=== PATIENT | female | born 1985 | race African-American/Black ===

== ENCOUNTER 2016-12-23 18:18 | Emergency (ER) | payer MEDICAID ==
[~2016-12-23] VITALS: Ht 162.6 cm; Wt 60.0 kg
[2016-12-23 20:26] LABS: BASOPHILS % 0.7 % (0.0-2.0); EOSINOPHILS % 4.4 % (0.0-5.0); HEMATOCRIT. 33.1 % (36.0-48.0); HEMOGLOBIN. 10.2 g/dL (12.0-16.0); LYMPHOCYTES % 18.9 % (20.0-50.0); MEAN CORPUSCULAR HEMOGLOBIN 22.6 pg (28.0-32.0); MEAN CORPUSCULAR VOLUME 73.5 fL (81.0-99.0); MONOCYTES % 4.8 % (2.0-8.0); NEUTROPHILS % 71.2 % (40.0-76.0); PLATELET 242 x1000/uL (130-400); RED BLOOD CELL COUNT 4.51 mill/uL (4.2-5.4); RED CELL DISTRIBUTION WIDTH 18.8 % (11.6-14.6)
[2016-12-23 20:33] LABS: INR 1.6; PROTHROMBIN TIME 16.5 sec
[2016-12-23 20:40] LABS: CARBON DIOXIDE 28 mEq/L (21-32); CHLORIDE 102 mEq/L (98-107)
[2016-12-23 21:11] LABS: CLARITY URINE CLOUDY (CLEAR); COLOR URINE YELLOW (YELLOW); GLUCOSE URINE NEGATIVE (NEGATIVE); KETONES URINE NEGATIVE (NEGATIVE); LEUKOCYTE ESTERASE URINE 3+ (NEGATIVE); NITRITE URINE NEGATIVE (NEGATIVE); OCCULT BLOOD URINE 1+ (NEGATIVE); PROTEIN URINE TRACE (NEGATIVE); SPECIFIC GRAVITY URINE 1.014 (1.005-1.030)
[2016-12-23 22:30] VITALS: BP 119/78
== END 2016-12-23 23:40 | disposition home or self-care (01) ==
LOC: ER 18:30
DX: R55 Syncope and collapse (principal); I50.9 Heart failure, unspecified; N30.00 Acute cystitis without hematuria
CPT/HCPCS: 36415; 71010; 80053; 81001; 81025; 85025; 85610; 93005; 99285